=== PATIENT | female | born 1950 ===

== ENCOUNTER → 2017-06-20 20:36 | Outpatient (CLI) | payer MEDICARE ==
[2017-06-20 21:39] LABS: APPEARANCE HAZY (CLEAR); BILIRUBIN NEGATIVE (NEGATIVE); COLOR YELLOW (YELLOW); GLUCOSE NEGATIVE (NEGATIVE); KETONE NEGATIVE (NEGATIVE); LEUKOCYTE ESTERASE TRACE (NEGATIVE); NITRITE NEGATIVE (NEGATIVE); PROTEIN NEGATIVE (NEGATIVE); SPECIFIC GRAVITY 1.015 (1.005-1.020); UROBILINOGEN NORMAL (NORMAL)
[2017-06-20 21:48] LABS: EPITHELIAL CELLS 0-5 /hpf (0-5); RED CELLS - URINE OCC /hpf (0-5)
[2017-06-20 21:49] LABS: BACTERIA FEW /hpf (NONE SEEN)
== END | disposition home or self-care (01) ==
LOC: D.LABREF 20:36
PROVIDERS: Urology
DX: N39.0 Urinary tract infection, site not specified (principal); R31.9 Hematuria, unspecified

== ENCOUNTER → 2017-06-28 07:28 | Outpatient (CLI) | payer MEDICARE | END | disposition home or self-care (01) | LOC: D.US 07:28 | DX: R31.9 Hematuria, unspecified (principal) ==

== ENCOUNTER 2017-08-02 05:49 | Day surgery (SDC) | payer MEDICARE | END 2017-08-02 09:12 | disposition home or self-care (01) | LOC: D.OPS 05:49 | DX: R31.9 Hematuria, unspecified (principal); E11.9 Type 2 diabetes mellitus without complications; K21.9 Gastro-esophageal reflux disease without esophagitis; E66.9 Obesity, unspecified; Z68.34 Body mass index [BMI] 34.0-34.9, adult; Z01.812 Encounter for preprocedural laboratory examination ==

== ENCOUNTER → 2017-08-22 21:42 | Outpatient (CLI) | payer MEDICARE ==
[2017-08-02 06:13] VITALS: BMI 34.9
== END | disposition home or self-care (01) ==
LOC: D.LABREF 21:42
DX: N39.0 Urinary tract infection, site not specified (principal)

== ENCOUNTER → 2017-08-29 17:40 | Outpatient (CLI) | payer MEDICARE ==
[2017-08-02 06:13] VITALS: BMI 34.9
== END | disposition home or self-care (01) ==
LOC: D.LABREF 17:40
DX: N39.0 Urinary tract infection, site not specified (principal)

== ENCOUNTER → 2017-10-29 15:26 | Outpatient (CLI) | payer MEDICARE ==
[2017-08-02 06:13] VITALS: BMI 34.9
== END | disposition home or self-care (01) ==
LOC: D.MAMMO 15:26
DX: Z12.31 Encounter for screening mammogram for malignant neoplasm of breast (principal)

== ENCOUNTER → 2017-12-14 09:15 | Outpatient (CLI) | payer MEDICARE ==
[2017-08-02 06:13] VITALS: BMI 34.9
== END | disposition home or self-care (01) ==
LOC: D.MAMMO 09:15
DX: R92.8 Other abnormal and inconclusive findings on diagnostic imaging of breast (principal)

== ENCOUNTER 2020-01-29 07:30 | Day surgery (SDC) | payer MEDICARE ==
[2020-01-27 09:46] LABS: HEMATOCRIT 38.1 % (36.0-48.0); HEMOGLOBIN 12.1 g/dL (12-16); MCH 28.4 pg (26.0-34.0); MCHC 31.8 g/dL (31.0-37.0); MCV 89.4 fL (80.0-100.0); MEAN PLATELET VOLUME 9.6 fL (7.4-10.4); RBC 4.26 10x6/uL (4.00-5.40); RDW 14.2 % (11.5-14.5); WBC 9.7 10x3/uL (4.8-10.8)
[~2020-01-29] VITALS: Ht 160 cm; Wt 86.2 kg
[~2020-01-29 07:30] MED LIST: ALEVE220 MG PO; MAG-OX 400 MG400 MG PO
[2020-01-29] MEDS ORDERED: ALEVE220 MG PO (07:56)
[2020-01-29 08:00] VITALS: BP 155/89; Ht 160 cm; Wt 86.2 kg
--- NOTE | 2020-01-29 08:50 | NUR ---
0850 RECAP OF EVENTS. PT'S NOSE WAS CLEANED WITH PROVIDONE IODINE SWABS BY [facility] AFTER VITAL SIGNS TAKEN. ABOUT 15 MINUTES LATER, THE PT BEGAN TO START SNEEZING. PT STATES HER NOSE IS BURNING. IT WAS NOTED AT THAT TIME THAT PT HAS A IODINE ALLERGY. PT WAS GIVEN A WARM WET WASHCLOTH AND WAS ABLE TO REMOVE IODINE FROM HER NOSE. PT DENIED AIRWAY RESTRICTION. NO SOB NOTED. DR BIANCHI WAS NOTIFIED AND ORDERS RECEIVED FOR BENADRYL IV. PT CURRENTLY IS NOT SNEEZING. NO FACIAL SWELLING. PT STATES THAT SHE CAN "VAGUELY FEEL THE BURNING" IN HER NOSE AT THIS TIME. SHE STATES SHE HAS TO 'CONCENTRATE ON IT" TO NOTICE THE BURNING. PT CONTINUES TO DENY ANY TIGHTNESS IN HER THROAT.
[2020-01-29] MEDS ORDERED: HYDROCODON-ACE1 EA10 PO (10:36)
--- NOTE | 2020-01-30 09:46 | OP ---
PATIENT NAME: PAOLA YADAV MEDICAL RECORD: [id number] :48 LOCATION:D.OPS ADMISSION DATE: SURGEON: SONIYA CALLAWAY MD DATE OF OPERATION: 01/29/2020 PREOPERATIVE DIAGNOSIS: Right trigger thumb. POSTOPERATIVE DIAGNOSIS: Right trigger thumb. PROCEDURE: Right trigger thumb release. SURGEON: Soniya Callaway MD ANESTHESIA: General. INTRAOPERATIVE COMPLICATIONS: None. SUMMARY OF PATHOLOGIC FINDINGS: The patient had a very tight A1 sharon. The trigger of the thumb consistent with preoperative diagnosis. OPERATIVE SUMMARY IN DETAIL: After obtaining the appropriate preoperative orthopedic surgery consent as well as anesthetic consultation, evaluation and clearance, the patient was brought to the operating room and placed on the operating table in supine position. After adequate general laryngeal mask airway was administered, tourniquet was placed about the proximal aspect of the right upper extremity. Right upper extremity was then prepped and draped in routine sterile fashion. The arm was elevated, exsanguinated and tourniquet was then inflated to 250 mmHg. Appropriate timeout was taken and agreed upon by all. Incision was made at the base of the right thumb, taken down to the level of the A1 sharon with direct visualization of the digital nerves. The A1 sharon was incised in its entirety. The thumb had mild attritional changes, but was in overall good condition. The wound was then irrigated and closed with 4-0 Prolene. The area was locally anesthetized with 0.25% Marcaine plain. Sterile dressings were applied. Tourniquet was deflated. The patient was awakened and taken to recovery room in stable condition. All final needle and sponge counts were correct. TRANSINT:[id number] Voice Confirmation ID: [id number] DOCUMENT ID: [id number] SONIYA CALLAWAY MD at 0946 CC: [id number] DICTATION DATE: 01/30/20 0615 COMPUTER ART INSTRUCTOR: 01/30/20 0849 [facility] 01/29/20 [place] [id number]
== END 2020-01-29 12:20 | disposition home or self-care (01) ==
LOC: D.OPS 07:30 → D.PAN 11:50 → D.OPS 11:50
PROVIDERS: Anesthesiology; ATTEND Orthopaedic Surgery
DX: M65.311 Trigger thumb, right thumb (principal); M13.841 Other specified arthritis, right hand